=== PATIENT | female | born 2000 | race African-American/Black ===

== ENCOUNTER 2022-12-07 13:39 | Emergency (ER) | payer OTHER ==
[2022-12-07 14:08] VITALS: BMI 40.2
[2022-12-07] MEDS ORDERED: MAG HYDROX/AL HYDROX/SIMETH 30 ML UNIT-DOSE CUP PO ONE (16:28)
[2022-12-07] MEDS ORDERED: ONDANSETRON 4 MG TABLET PO ONE (16:28)
[2022-12-07] MEDS ORDERED: IBUPROFEN 400 MG TABLET (FP) PO ONE ×2 (16:28→16:54)
[2022-12-07] MEDS ORDERED: FAMOTIDINE 10 MG TABLET PO ONE (16:28)
[2022-12-07] MEDS ORDERED: SUCRALFATE 1 GM/10 ML UNIT DOSE CUPS PO ONE (16:29)
[2022-12-07] MEDS ORDERED: ONDANSETRON *ODT* 4 MG TABLET ONE (16:53)
[2022-12-07] MEDS ORDERED: FAMOTIDINE 10 MG TABLET ONE (16:53)
[2022-12-07] MEDS ORDERED: SUCRALFATE 1 GM TABLET (FP) ONE (16:53)
[2022-12-07] MEDS ORDERED: MAG HYDROX/AL HYDROX/SIMETH 30 ML UNIT-DOSE CUP ONE (16:54)
[2022-12-07 18:04] VITALS: BP 132/60; PULSE 67; RESP 15; TEMP 98.3
== END 2022-12-07 18:42 | disposition home or self-care (01) ==
LOC: JER 13:39
DX: R07.89 Other chest pain (principal)
CPT/HCPCS: 71045-TC-FY; 93005; 93010; 99284-25